=== PATIENT | male | born 1945 | race Caucasian/White ===

== ENCOUNTER → 2018-03-11 | Outpatient (CLI) | payer OTHER, MEDICARE ==
[~2018-03-11] VITALS: Ht 182.9 cm; Wt 111.1 kg
[~2018-03-11] MED LIST: ASPIR 8181 MG PO; COZAAR 50 MG TA50 M1 PO; DILTIAZEM 24HR360 M1 PO; HYDROCHLOROTH12.5 M2 PO; LIPITOR 20 MG T20 M1 PO; NEURONTIN 300300 M1 PO; OMEPRAZOLE 20 M20 M1 PO; POTASSIUM20 PO
--- NOTE | ~2018-03-11 | P ---
[facility] [place] [address] PROCEDURE REPORT Name: JUANYBARRY Genia Room #: REG [facility]#: [id number] Admission: 03/11/18 Attend Phys: Nirmal Demarco MD Discharge: Date of : 49 Report #: [id number] THIS REPORT FOR: //name// CC: Nirmal Chisholm DATE OF SERVICE: 03/11/2018 BRIEF HISTORY: The patient is a 72-year-old male with a personal history of greater than 30 adenomas lifetime. He has had genetic testing, which was nondiagnostic, but history is suggestive of attenuated FAP. He also personally has had long prostate and colon cancer. PREOPERATIVE DIAGNOSIS: High risk screening colonoscopy. POSTOPERATIVE DIAGNOSES: 1. Diminutive colon polyps x 2. 2. Moderate sigmoid diverticulosis coli. 3. Small internal hemorrhoids. MEDICATIONS: Deep sedation with propofol per anesthesia. SPECIMENS: 1. Diminutive polyp at 70 cm. 2. Diminutive polyp at 40 cm. ESTIMATED BLOOD LOSS: 3 mL. PROCEDURE: Colonoscopy to cecum and terminal ileum with biopsy. FINDINGS: Prior to propofol sedation, procedure of colonoscopy discussed with the patient as well as potential risks and its complications. He indicates he understands and desires to proceed. DESCRIPTION OF PROCEDURE: With the patient in left lateral decubitus position, digital examination was completed, which revealed no abnormalities. Subsequently, the Olympus video colonoscope was introduced in the rectum, advanced under direct vision to the cecum. Done with minimal difficulty. The cecum was identified by the ileocecal valve and the appendiceal orifice. I was able to visualize the distal segment of terminal ileum, which was inspected and noted to be unremarkable. At that point, the scope was slowly withdrawn and careful circumferential views obtained including retroflexion of the scope in the ascending colon. Upon slow withdrawal of the scope, the prep was fairly good. There were some limitations of the proximal colon. Much of this was cleaned up and overall, a good prep was obtained. The mucosa was within normal [facility] [address] [place] [address] PROCEDURE REPORT Name: BARRY HARRINGTON Room #: REG [facility]#: [id number] Admission: 03/11/18 Attend Phys: Nirmal Demarco MD Discharge: Date of : 49 Report #: [id number] limits, normal vascular pattern, normal light reflex. As we withdrew the scope, no abnormalities were noted until the left colon was reached and at 70 cm, a diminutive polyp was seen and removed by biopsy. At 40 cm, another diminutive polyp was seen and removed by biopsy. The scope was further withdrawn and he was noted to have moderate sigmoid diverticular disease without endoscopic evidence of diverticulitis. The scope was withdrawn in the rectum. Upon retroflexion, no abnormalities were seen. Scope was withdrawn and the patient tolerated procedure well. CONDITION OF THE PATIENT UPON DISCHARGE: Following procedure, the patient was drowsy, arousable and conversant and will be discharged home when fully ambulatory. INSTRUCTIONS TO THE PATIENT AND FAMILY AT THE TIME OF DISCHARGE: We will follow up on the pathology. On his last exam, only 1 hyperplastic polyp was identified. The polyps today are quite small. In the last exam, he has not had a very large polyp count. Therefore, I think we can have him return in 2 years for his next colonoscopy. Last colonoscopy was a little more than a year ago. Withdrawal time from the cecum was 14 minutes 31 seconds. By: 1012 1229 Nirmal Demarco MD /nt
--- NOTE | ~2018-03-11 | PATH ---
[facility] [address] [place] [address] PATHOLOGY RPT PROCEDURE Name: PARAMJIT JOHNSTON Room #: REG [facility] Lilian.#: [id number] Admission: 03/11/18 Date of : 49 Discharge: Report #: [id number] Path Case #: [id number] [facility] Accession Number: [id number] . 01 Material submitted: . PART A: BIOPSY OF POLYP AT 70 CM PART B: POLYP AT 40 CM . 01 Clinical history: . Pre-OP DX: Polyps Post-OP DX: Colon polyps, diverticulosis, hemorrhoids . 02 Diagnosis: A. Polyp, at 70 cm, endoscopic biopsy: - Tubular adenoma. - Negative for high grade dysplasia. . B. Polyp, at 40 cm, endoscopic biopsy: - Tubular adenoma. - Negative for high grade dysplasia. . (IUV:mml; 03/12/18) QL/03/12/2018 . 02 Electronically signed: . Shavon Hoffman MD, Pathologist NPI- [id number] . 01 Gross description: . A. Received in formalin labeled "Paramjit Johnston, biopsy of polyp 70 cm," is a single segment of llanos soft tissue measuring 0.4 cm in maximum dimension. The specimen is entirely submitted in cassette A1. . B. Received in formalin labeled "Paramjit Johnston, polyp at 40 cm," is a single segment of llanos soft tissue measuring 0.5 cm in maximum dimension. The specimen is entirely submitted in cassette B1. (TSD; 03/11/2018) TOB/TOB . 02 Pathologist provided ICD-10: D12.6 . 02 CPT . 003908, [id number] Specimen Comment: A courtesy copy of this report has been sent to Specimen Comment: [phone], , . Specimen Comment: Report sent to ,DR QUINTANILLA / [place] [address] PATHOLOGY RPT PROCEDURE Name: PARAMJIT JOHNSTON Room #: REG [facility].#: [id number] Admission: 03/11/18 Date of : 49 Discharge: Report #: [id number] Path Case #: [id number] Performed at: 01 [facility] [place] [address] [facility] [address], [place], [place] [id number] MD Tone Jaramillo MD Phone: [phone] Performed at: [address] [id number] MD Shavon Hoffman MD Phone: [phone]
== END | disposition home or self-care (01) ==
LOC: GI 08:48
DX: Z09 Encounter for follow-up examination after completed treatment for conditions other than malignant neoplasm (principal); Z86.010 Personal history of colon polyps; Z85.038 Personal history of other malignant neoplasm of large intestine; D12.5 Benign neoplasm of sigmoid colon; D12.4 Benign neoplasm of descending colon; K57.30 Diverticulosis of large intestine without perforation or abscess without bleeding; K64.8 Other hemorrhoids; I10 Essential (primary) hypertension; K21.9 Gastro-esophageal reflux disease without esophagitis; E78.00 Pure hypercholesterolemia, unspecified; Z85.51 Personal history of malignant neoplasm of bladder; Z87.891 Personal history of nicotine dependence; Z85.46 Personal history of malignant neoplasm of prostate; Z85.118 Personal history of other malignant neoplasm of bronchus and lung; Z90.49 Acquired absence of other specified parts of digestive tract; Z98.890 Other specified postprocedural states; Z79.899 Other long term (current) drug therapy; Z79.82 Long term (current) use of aspirin
CPT/HCPCS: 62110; 62900

== ENCOUNTER → 2019-12-26 | Outpatient (CLI) | payer OTHER, MEDICARE ==
[~2019-12-26] VITALS: Ht 182.9 cm; Wt 113.4 kg
[~2019-12-26] MED LIST changes: +CIALIS5 MG PO; +PEPCID20 MG PO; +TYLENOL ARTHRI650 MG PO
--- NOTE | 2019-12-27 17:07 | PATH ---
[facility] [place] [address] PATHOLOGY RPT PROCEDURE Name: PARAMJIT JOHNSTON Room #: REG [facility].#: [id number] Admission: 12/26/19 Date of : 49 Discharge: Report #: [id number] Path Case #: [id number] [facility] Accession Number: [id number] . 01 Material submitted: . PART A: colon - POLYP AT DISTAL TRANSVERSE COLON. Modifiers: distal, transverse PART B: colon - POLYP AT PROXIMAL TRANSVERSE COLON. Modifiers: proximal, transverse PART C: colon - POLYP AT 80CM PART D: colon - POLYP AT 70CM PART E: colon - POLYP AT 60CM PART F: colon - POLYP AT 30CM PART G: colon - POLYP AT 20CM . 01 Clinical history: . HX OF POLYPS, COVID . 02 Diagnosis: A. Polyp, at distal transverse colon, endoscopic biopsy: - Tubular adenoma. - Negative for high-grade dysplasia. . B. Polyp, at proximal transverse colon, endoscopic biopsy: - Reactive hyperplastic changes along with a lymphoid aggregate. - Negative for dysplasia. . C. Polyp, at 80 cm, endoscopic biopsy: - Tubular adenoma. - Negative for high-grade dysplasia. . D. Polyp, at 70 cm, endoscopic biopsy: - Minute tubular adenoma. - Negative for high-grade dysplasia. . E. Polyp, at 60 cm, endoscopic biopsy: - Hyperplastic polyp. - Negative for dysplasia. . F. Polyp, at 30 cm, endoscopic biopsy: - Inflamed tubular adenoma. - Negative for high-grade dysplasia. . G. Polyp, at 20 cm, endoscopic biopsy: - Inflamed hyperplastic polyp. - Negative for dysplasia. (IUV:pit 12/27/2019) QTP 12/27/[address] [address] PATHOLOGY RPT PROCEDURE Name: PARAMJIT JOHNSTON JR [facility] [id number] Admission: 12/26/19 Date of : 49 Discharge: Report #: [id number] Path Case #: [id number] . 02 Electronically signed: . Shavon Hoffman MD, Pathologist NPI- [id number] . 01 Gross description: . A. The specimen is received in formalin, labeled "Paramjit Johnston Jr., polyp at distal transverse colon". Received is a segment of pale llanos soft tissue measuring 1.0 cm in maximum dimensions. The specimen is submitted entirely in cassette A1. . B. The specimen is received in formalin, labeled "Paramjit Johnston Jr., polyp at proximal transverse colon". Received are two segments of pale llanos soft tissue measuring 0.3 cm each in maximum dimensions. The specimen is submitted entirely in cassette B1. . C. The specimen is received in formalin, labeled "Paramjit Johnston Jr., polyp at 80 cm". Received are four segments of pale llanos soft tissue ranging in size from 0.3 to 0.6 cm in maximum dimensions. The specimen is submitted entirely in cassette C1. . D. The specimen is received in formalin, labeled "Paramjit Johnston Jr., polyp at 70 cm". Received are four segments of pale llanos soft tissue ranging in size from 0.2 to 0.4 cm in maximum dimensions. The specimen is submitted entirely in cassette D1. . E. The specimen is received in formalin, labeled "Paramjit Johnston Jr., polyp at 60 cm". Received is a segment of pale llanos soft tissue measuring 0.4 cm in maximum dimensions. The specimen is submitted entirely in cassette E1. . F. The specimen is received in formalin, labeled "Paramjit Johnston Jr., polyp at 30 cm". Received is a segment of pale llanos soft tissue measuring 0.7 cm in maximum dimensions. The specimen is submitted entirely in cassette F1. . G. The specimen is received in formalin, labeled "Paramjit Johnston Jr., polyp at 20 cm". Received is a segment of pale llanos soft tissue measuring 0.4 cm in maximum dimensions. The specimen is submitted entirely in cassette G1. (CAA; 12/26/2019) QA/QA 12/27/2019 1506 Local . 02 Pathologist provided ICD-10: D12.3, D12.6, K63.5 . 02 [facility] . [address] [address] PATHOLOGY RPT PROCEDURE Name: PARAMJIT JOHNSTON JR Room #: REG [facility].#: [id number] Admission: 12/26/19 Date of : 49 Discharge: Report #: [id number] Path Case #: [id number] Specimen Comment: A courtesy copy of this report has been sent to [phone] Specimen Comment: Report sent to Performed at: [address], [place] [id number] MD Tone Jaramillo MD Phone: [phone] Performed at: [address] [id number] MD Shavon Hoffman MD Phone: [phone]
--- NOTE | 2019-12-29 08:55 | P ---
[facility] [place] [address] PROCEDURE REPORT Name: BARRY HARRINGTON JR Room #: REG [facility]#: [id number] Admission: 12/26/19 Attend Phys: Nirmal Demarco MD Discharge: Date of : 47 Report #: [id number] THIS REPORT FOR: cc: TIA - Family physician unknown TIA - Family physician unknown Nirmal Demarco MD ~ CC: TIA unknown Nirmal Demarco DATE OF SERVICE: 12/26/2019 OUTPATIENT COLONOSCOPY REPORT BRIEF HISTORY: The patient is a 74-year-old male, who in recent months has had a change in his bowel habits. He also has a history of multiple colon polyps, for greater than 30 lifetime. Family history of colon cancer in maternal uncle and aunt in their 60s and 70s. He also has had a history of lung cancer. PREOPERATIVE DIAGNOSES: Change in bowel habits and history of polyps. POSTOPERATIVE DIAGNOSES: 1. Multiple colon polyps. 2. Moderate sigmoid diverticulosis coli. 3. Moderate internal hemorrhoids. MEDICATIONS: Deep sedation with propofol per anesthesia. SPECIMENS: 1. Polyp, distal transverse colon. 2. Polyp, proximal transverse colon. 3. Polyp at 80 cm. 4. Polyp at 70 cm. 5. Polyp at 60 cm. 6. Polyp at 30 cm. 7. Polyp at 20 cm. ESTIMATED BLOOD LOSS: 3 mL. PROCEDURE: Colonoscopy to cecum and terminal ileum with snare polypectomy and biopsy. FINDINGS: Prior to propofol sedation, procedure of colonoscopy discussed with the patient as well as potential risks and its complications. He indicates he understands and desires to proceed. DESCRIPTION OF PROCEDURE: With the patient in left lateral decubitus position, [facility] [address] [place] [address] PROCEDURE REPORT Name: BARRY HARRINGTON JR Room #: REG [facility].#: [id number] Admission: 12/26/19 Attend Phys: Nirmal Demarco MD Discharge: Date of : 49 Report #: [id number] digital examination was completed, which revealed no abnormalities. Subsequently, the Olympus video colonoscope was introduced in the rectum, advanced under direct vision to the cecum. This was done with minimal difficulty. The cecum was identified by the ileocecal valve and the appendiceal orifice. I was able to visualize the distal segment of terminal ileum, which was inspected and noted to be unremarkable. At that point, the scope was slowly withdrawn and careful circumferential views were obtained. Upon slow withdrawal of the scope, there were noted to be some limitations of the prep in the proximal colon with retained bilious material. We irrigated with Mylicon and suctioned as well as possible. All this material could be removed and there were some minor limitations of the prep with adherent bile. As we withdrew the scope, he was found to have a diminutive polyp in the proximal transverse colon, removed with the biopsy forceps. In the mid transverse colon, tattoo brito were seen. There is no evidence of residual polyp at that level. The distal transverse colon, a 5 mm polyp was seen, removed by cold snare polypectomy and recovered. In addition, a similar size polyp was seen at 80 cm, removed by cold snare polypectomy and recovered. The scope was further withdrawn and at 70 cm, a diminutive polyp was seen and removed with biopsy forceps. Upon withdrawal, another diminutive polyp was seen and removed with biopsy forceps at 60 cm. At 30 cm, a 4 mm sessile polyp was removed by cold snare polypectomy. At 20 cm, a diminutive polyp was removed with biopsy forceps. The patient was noted to have moderate diverticular disease in sigmoid colon without endoscopic evidence of diverticulitis. Scope was withdrawn in the rectum, no abnormalities were seen. Upon retroflexion, no abnormalities were seen. Scope was withdrawn. The patient tolerated the procedure well. Upon retroflexion, moderate internal hemorrhoids were seen. Scope was withdrawn. The patient tolerated the procedure well. CONDITION OF THE PATIENT UPON DISCHARGE: Following procedure, the patient drowsy, aroused, conversant and will be discharged home when fully ambulatory. INSTRUCTIONS TO THE PATIENT AND FAMILY AT THE TIME OF DISCHARGE: We will follow up on the pathology of the polyps. However, in view of his lifetime history of greater than 30 polyps, suggest return in 2 years for high-risk screening colonoscopy. As far as change in bowel habits, I saw no abnormalities such as strictures or masses or obstructing lesions. Suggest high-fiber diet and a fiber supplement if needed. If he continues to have problems, he should return to the office for followup. <ELECTRONICALLY SIGNED> By: Nirmal Demarco MD 12/29/19 0855 0947 1311 Nirmal Demarco MD /luc
--- NOTE | 2019-12-29 08:55 | P ---
[facility] [place] [address] PROCEDURE REPORT Name: BARRY HARRINGTON JR Room #: REG [facility]#: [id number] Admission: 12/26/19 Attend Phys: Nirmal Demarco MD Discharge: Date of : 47 Report #: [id number] THIS REPORT FOR: cc: [facility] - Family physician unknown FAM - Family physician unknown Nirmal Demarco MD ~ CC: TIA unknown Nirmal Demarco OUTPATIENT UPPER ENDOSCOPY REPORT BRIEF HISTORY: The patient is a 74-year-old patient known to me with history of reflux esophagitis. 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 PREOPERATIVE DIAGNOSES: Gastroesophageal reflux disease and history of colon polyps. POSTOPERATIVE DIAGNOSIS: Moderate diffuse gastritis with some bile staining. MEDICATIONS: Deep sedation with propofol per anesthesia. SPECIMEN: None. ESTIMATED BLOOD LOSS: None. PROCEDURES: EGD with biopsy. FINDINGS: Prior to propofol sedation, procedure of upper endoscopy discussed with the patient as well as potential risks and its complications. He indicates he understands and desires to proceed. DESCRIPTION OF PROCEDURE: With the patient in left lateral decubitus position, the Olympus video endoscope was inserted into cervical esophagus under direct vision without difficulty. Examination of this organ through its entire length revealed normal esophageal mucosa down the squamocolumnar junction. Squamocolumnar junction was inspected and noted to be unremarkable. I do not see endoscopic evidence of esophagitis nor do I see evidence of Buchanan's, strictures or masses. In addition, the hiatus hernia was not seen. The scope was advanced in the stomach, was examined on end view as well as retroflexed views. There was diffuse erythema throughout the entire stomach and there was a small amount of bilious material in the body of the stomach, which was aspirated away. However, the mucosa was intact. No ulcers or erosions were seen. Upon retroflexion, no abnormalities were seen. No mass lesions were seen in the cardia. A hiatus hernia was not seen. The pylorus, duodenal bulb and postbulbar duodenal sweep were all inspected and noted to be unremarkable. In addition, in particular, the duodenal papilla was well seen. It was normal [facility] [address] [place] [address] PROCEDURE REPORT Name: BARRY HARRINGTON Room #: REG [facility]#: [id number] Admission: 12/26/19 Attend Phys: Nirmal Demarco MD Discharge: Date of : 49 Report #: [id number] without mass effect. Also, no polyps were seen in the duodenum. At that point, the scope was slowly withdrawn and careful circumferential views confirmed the above findings. The patient tolerated the procedure well. CONDITION OF THE PATIENT UPON DISCHARGE: Following the procedure, the patient was drowsy. He was prepared for colonoscopy. INSTRUCTIONS TO THE PATIENT AND FAMILY AT THE TIME OF DISCHARGE: He is currently taking omeprazole and does have some symptoms. He is taking omeprazole about 3 times weekly. He should increase his dosage possibly to every other day or daily. If he does not have good control of symptoms, return to the office for followup. In view of his history of greater than 30 polyps lifetime, and the potential risk for small bowel cancer, I suggest he return in about 3 years for followup endoscopy. <ELECTRONICALLY SIGNED> By: Nirmal Demarco MD 12/29/19 0855 0852 1228 Nirmal Demarco MD /nt
== END | disposition home or self-care (01) ==
LOC: GI 07:27
PROVIDERS: ATTEND Specialist
DX: R19.4 Change in bowel habit (principal); D12.3 Benign neoplasm of transverse colon; D12.4 Benign neoplasm of descending colon; D12.5 Benign neoplasm of sigmoid colon; K51.40 Inflammatory polyps of colon without complications; K57.30 Diverticulosis of large intestine without perforation or abscess without bleeding; K64.8 Other hemorrhoids; K29.70 Gastritis, unspecified, without bleeding; K21.9 Gastro-esophageal reflux disease without esophagitis; I10 Essential (primary) hypertension; E78.00 Pure hypercholesterolemia, unspecified; Z86.010 Personal history of colon polyps; Z80.0 Family history of malignant neoplasm of digestive organs; Z98.890 Other specified postprocedural states; Z79.899 Other long term (current) drug therapy; Z20.828 Contact with and (suspected) exposure to other viral communicable diseases; Z87.891 Personal history of nicotine dependence; Z85.46 Personal history of malignant neoplasm of prostate; Z85.118 Personal history of other malignant neoplasm of bronchus and lung; Z85.51 Personal history of malignant neoplasm of bladder; Z90.49 Acquired absence of other specified parts of digestive tract
CPT/HCPCS: 62110; 62900